=== PATIENT | male | born 1980 | race Caucasian/White ===

== ENCOUNTER 2019-12-14 20:24 | Observation (INO) | payer OTHER ==
[~2019-12-14] VITALS: Ht 177.8 cm; Wt 122.7 kg
[2019-12-14 20:33] VITALS: Ht 177.8 cm; Wt 122.7 kg
[2019-12-14 21:08] LABS: UDS - AMPHET NEGATIVE QUAL (NEGATIVE); UDS - BARB NEGATIVE QUAL (NEGATIVE); UDS - BENZO NEGATIVE QUAL (NEGATIVE); UDS - COCAINE NEGATIVE QUAL (NEGATIVE); UDS - OPIATE NEGATIVE QUAL (NEGATIVE); UDS - PCP NEGATIVE QUAL (NEGATIVE); UDS - THC NEGATIVE QUAL (NEGATIVE)
[2019-12-14 21:09] LABS: BILIRUBIN NEGATIVE (NEGATIVE); KETONE NEGATIVE (NEGATIVE); NITRITE NEGATIVE (NEGATIVE); UROBILINOGEN NORMAL mg/dL (< 2)
[2019-12-14 21:10] LABS: BASOPHILS 0.8 % (0-2); EOSINOPHILS 5.8 % (0-7); HEMATOCRIT 44.4 % (42.0-54.0); HEMOGLOBIN 15.7 g/dL (13.5-17.5); IMMATURE GRANULOCYTES 0.3 % (0-5); LYMPHOCYTES 31.2 % (15-50); MCH 31.7 pg (26.0-34.0); MCHC 35.4 g/dL (31.0-37.0); MCV 89.7 fL (80.0-100.0); MEAN PLATELET VOLUME 9.9 fL (7.4-10.4); MONOCYTES 7.1 % (2-11); NEUTROPHILS 54.8 % (40-80); PLATELET COUNT 209 10x3/uL (130-400); RBC 4.95 10x6/uL (4.20-6.10); RDW 12.3 % (11.5-14.5); WBC 7.1 10x3/uL (4.8-10.8)
[2019-12-14 21:29] LABS: CALC OSMOLALITY 276 mosm/kg (275-300); CALCIUM 8.8 mg/dL (8.5-10.1); CARBON DIOXIDE 27.5 mmol/L (21.0-32.0); CHLORIDE - SERUM 103 mmol/L (98-107); CREATININE - SERUM 1.2 mg/dL (0.6-1.3); GLUCOSE 115 mg/dL (74-106); SODIUM 137 mmol/L (136-145); UREA NITROGEN 18 mg/dL (7-18); eGFR NON AFRICAN AMERICAN 72 mL/min (90-120)
[2019-12-14 21:34] LABS: ALBUMIN 3.8 g/dL (3.4-5.0); ALKALINE PHOSPHATASE 61 U/L (30-120); BILIRUBIN - TOTAL 0.41 mg/dL (0.2-1.3); LIPASE 143 U/L (73-393); MAGNESIUM - SERUM 2.2 mg/dL (1.8-2.4); PROTEIN - SERUM 7.7 g/dL (6.4-8.2); THYROID STIMULATING HORMONE 0.71 uIU/mL (0.36-3.74)
[2019-12-14 21:41] LABS: ALT (SGPT) 55 U/L (10-68); C-REACTIVE PROTEIN < 0.2 mg/dL (0.0-0.9); TROPONIN-I < 0.017 ng/mL (0.000-0.060)
[2019-12-15] VITALS: BP 135/83
--- NOTE | 2019-12-15 03:06 | NUR ---
PT LYING IN BED, BREATHS EVEEN, AT BEDSIDE, NO ACUTE DISTRESS NOTED, NO NEEDS AT THIS TIME. WILL CONTINUE TO MONITOR.
[2019-12-15 03:30] LABS: BASOPHILS 0.6 % (0-2); EOSINOPHILS 4.9 % (0-7); HEMATOCRIT 40.8 % (42.0-54.0); HEMOGLOBIN 14.3 g/dL (13.5-17.5); IMMATURE GRANULOCYTES 0.2 % (0-5); LYMPHOCYTES 38.6 % (15-50); MCH 31.4 pg (26.0-34.0); MCV 89.5 fL (80.0-100.0); MEAN PLATELET VOLUME 9.5 fL (7.4-10.4); MONOCYTES 7.7 % (2-11); PLATELET COUNT 169 10x3/uL (130-400); RBC 4.56 10x6/uL (4.20-6.10); RDW 12.3 % (11.5-14.5); WBC 6.5 10x3/uL (4.8-10.8)
[2019-12-15 03:50] LABS: CALC OSMOLALITY 280 mosm/kg (275-300); CALCIUM 8.4 mg/dL (8.5-10.1); CARBON DIOXIDE 26.2 mmol/L (21.0-32.0); CHLORIDE - SERUM 104 mmol/L (98-107); CHOL - HDL RATIO 4.7 ratio (2.3-4.9); CHOLESTEROL, TOTAL 197 mg/dL (0-200); CKMB 2.7 U/L (0.0-3.6); CREATINE KINASE 692 UL (21-232); CREATININE - SERUM 1.3 mg/dL (0.6-1.3); GLUCOSE 100 mg/dL (74-106); HDL CHOLESTEROL 42 mg/dL (32-96); LDL CHOLESTEROL 121 mg/dL (0-100); LDL-HDL RATIO 2.9 ratio (1.5-3.5); PHOSPHOROUS 4.3 mg/dL (2.5-4.9); POTASSIUM - SERUM 3.9 mmol/L (3.5-5.1); SODIUM 140 mmol/L (136-145); THYROID STIMULATING HORMONE 0.68 uIU/mL (0.36-3.74); TRIGLYCERIDE 170 mg/dL (30-200); UREA NITROGEN 17 mg/dL (7-18); eGFR NON AFRICAN AMERICAN 65 mL/min (90-120)
[2019-12-15 03:52] LABS: TROPONIN-I < 0.017 ng/mL (0.000-0.060)
--- NOTE | 2019-12-15 09:55 | NUR ---
CONTACTED DR. VALLEJO AND ADVISED PT IS HOLDING IN ED AT THIS TIME.
[2019-12-15 10:05] LABS: CKMB 2.5 U/L (0.0-3.6); CREATINE KINASE 598 UL (21-232); TROPONIN-I < 0.017 ng/mL (0.000-0.060)
--- NOTE | 2019-12-15 10:29 | NUR ---
DR VALLEJO AT BEDSIDE AT THIS TIME.
[2019-12-15 10:34] VITALS: BP 118/74
[2019-12-15 12:01] VITALS: BP 117/80
[2019-12-15 13:58] VITALS: BP 137/86
[2019-12-15 15:41] VITALS: BP 110/77
[2019-12-15 16:31] LABS: CKMB 2.2 U/L (0.0-3.6); CREATINE KINASE 522 UL (21-232)
[2019-12-15 16:40] LABS: TROPONIN-I < 0.017 ng/mL (0.000-0.060)
--- NOTE | 2019-12-15 16:57 | NUR ---
cardiology contact pt request to leave. carddiology states stress test was normal and the pt can leave. primary contacted and informed and states they will discharge. patient informed
[2019-12-15 18:06] VITALS: BP 119/81
--- NOTE | 2019-12-15 18:45 | NUR ---
IV INFUSION COMPLETE @ [id number]
== END 2019-12-15 20:39 | disposition home or self-care (01) ==
LOC: D.ER 20:24 → D.EDHOLD 23:04 → OBSVTIME 23:04 → D.EDHOLD 23:04 → D.M2 12-15 19:23 → D.EDHOLD 12-15 19:35
PROVIDERS: Family Medicine; ADMIT Family Medicine; ATTEND Family Medicine
DX: R07.89 Other chest pain (principal); J45.909 Unspecified asthma, uncomplicated; R00.2 Palpitations; I20.0 Unstable angina; I47.1 Supraventricular tachycardia